=== PATIENT | female | born 1960 | race Two or more races ===

== ENCOUNTER 2022-01-03 07:13 | Outpatient (CLI) | payer OTHER | END 2022-01-03 07:21 | disposition home or self-care (01) | LOC: TOM 07:13 | DX: K44.9 Diaphragmatic hernia without obstruction or gangrene (principal); K25.9 Gastric ulcer, unspecified as acute or chronic, without hemorrhage or perforation; K31.89 Other diseases of stomach and duodenum; K22.89 Other specified disease of esophagus; K63.5 Polyp of colon; K76.0 Fatty (change of) liver, not elsewhere classified; R16.0 Hepatomegaly, not elsewhere classified ==

== ENCOUNTER 2022-02-20 07:47 | Outpatient (CLI) | payer OTHER | END 2022-02-20 07:49 | disposition home or self-care (01) | LOC: NUCLEAR 07:47 | DX: Z12.12 Encounter for screening for malignant neoplasm of rectum (principal); K25.9 Gastric ulcer, unspecified as acute or chronic, without hemorrhage or perforation; Z86.010 Personal history of colon polyps; R12 Heartburn; Z80.0 Family history of malignant neoplasm of digestive organs | CPT/HCPCS: 78815; A9552 ==